=== PATIENT | male | born 1955 | race Caucasian/White ===

== ENCOUNTER 2024-01-30 11:18 | Emergency (ER) | payer SELFPAY ==
--- NOTE | ~2024-01-30 | CT_ITS ---
EXAMINATION: CT ABDOMEN AND PELVIS WITH CONTRAST CLINICAL INFORMATION: Right upper quadrant pain. Elevated bilirubin. COMPARISON: Ultrasound abdomen 01/30/2024 TECHNIQUE: Multidetector volumetric images were obtained from the superior aspect of the liver through the pubic symphysis following administration 85 mL of Omnipaque 350 intravenous contrast. Sagittal and coronal reformatted images were obtained on the technologist's workstation. Oral contrast: No This CT examination was performed using dose optimization techniques as appropriate, variously including the following: *Automated exposure control *Adjustment of mA and/or kV according to patient size (this includes techniques or standardized protocols for targeted exams where dose is matched to indication/reason for exam; i.e. extremities or head) *Use of iterative reconstruction technique DLP: 538 mGy-cm FINDINGS: LUNG BASES: Small patchy subpleural opacity in the right lung base, could reflect atelectasis or focal inflammatory process. No pericardial or pleural effusion. LIVER, GALLBLADDER, AND BILIARY TREE: The liver is normal in shape. No focal hepatic lesion or biliary ductal dilatation is present. The gallbladder is unremarkable with no evidence of radiopaque gallstones, gallbladder wall thickening, or obvious pericholecystic inflammatory changes. PANCREAS: There is elevation of the left hemidiaphragm. The tail of the pancreas is oriented superiorly extending to the left upper quadrant. No acute inflammatory changes are seen. No ductal dilatation seen. SPLEEN: The spleen is not clearly identified. There is a surgical clip in the left upper quadrant. There are at least 3 soft tissue foci/masses in the left upper quadrant, measuring 2.6 cm, 1.8 cm, and 3.2 cm respectively. These are adjacent to the tail of the pancreas. This of uncertain etiology, could be related to residual splenic tissue. ADRENAL GLANDS: Unremarkable. KIDNEYS AND URETERS: 4 cm left renal simple cyst. No follow-up is indicated. Small right renal hypodense lesion, too small to characterize, statistically likely to be a cyst. No renal or ureteral calculi seen. No evidence of hydroureteronephrosis. No perinephric stranding. BLADDER: Unremarkable. GASTROINTESTINAL TRACT: The stomach is nondistended. The fundus and body of the stomach is thick-walled.. This could be related to lack of distention. Other etiologies such as gastritis, infiltrative lesion cannot be excluded. No dilated small or large bowel loops. No acute inflammatory changes are identified of the small or large bowel. There are multiple appendicoliths present within the appendix. The appendix is nondistended, with no inflammatory changes identified. No free fluid. No free air. ABDOMINAL WALL: No significant hernia is appreciated. LYMPH NODES: No pathologically enlarged lymph nodes are seen in the abdomen or the pelvis. VASCULAR: Normal caliber aorta. Atherosclerotic vascular calcifications present. PELVIC VISCERA: Prostate calcifications present. Seminal vesicles appear unremarkable. OSSEOUS STRUCTURES: Multilevel degenerative changes in the spine. Rightward curvature of the lumbar spine. CT/CT abdomen pelvis w IV con IMPRESSION: 1. There is elevation the left hemidiaphragm. There is a surgical clip in the left upper quadrant. The spleen is not visualized. There is soft tissue foci/masses in the left upper quadrant, measuring 2.6 cm, 1.8 cm and 3.2 cm respectively. These are adjacent to the tail of the pancreas. These are off uncertain etiology. Potentially, this could represent residual splenic tissue. Other etiologies cannot be excluded. Correlate with patient's prior clinical history, prior imaging if available. Further evaluation with MRI can be considered, as clinically indicated. 2. There is a thickening of the fundus and body of the stomach. This could be related to lack of distention. Other etiologies such as gastritis or infiltrative lesion cannot be excluded. Clinically correlate. Further evaluation with upper GI series or endoscopy as clinically indicated. 3. Small patchy opacity right lung base could represent atelectasis or focal inflammatory process. 4. Multiple appendicoliths within appendix. No acute appendiceal inflammatory changes are identified at this stage. 5. Additional findings and details as above. Fleischner guidelines were followed.
--- NOTE | ~2024-01-30 | US_ITS ---
EXAMINATION: US ABDOMEN LIMITED CLINICAL INFORMATION: Epigastric and right upper quadrant pain. COMPARISON: None available. TECHNIQUE: Real-time imaging of the right upper quadrant abdominal viscera. FINDINGS: PANCREAS: The visualized portions of the pancreas are unremarkable but a large portion of the gland is obscured by bowel gas. LIVER: The liver is normal in size. The liver contour is normal. Parenchymal echogenicity is normal. No focal hepatic lesion. There is no intrahepatic biliary duct dilatation seen. GALLBLADDER: Normal. The gallbladder is physiologically distended without evidence of stones, sludge, polyps, wall thickening or pericholecystic fluid. COMMON BILE DUCT: Normal in caliber measuring 0.4 cm in diameter. RIGHT KIDNEY: No hydronephrosis. No renal calculi. A benign mid renal 1.2 cm Bosniak class I renal cyst is noted which requires no additional imaging or follow up. No solid renal masses are seen.. The kidney measures 11.4 cm in maximum dimension. FREE FLUID: None. US/US abdomen limited IMPRESSION: No significant abnormality is seen. A cause for the patient's epigastric and right upper quadrant pain has not been found.
[2024-01-30 11:21] VITALS: BP 146/89; PULSE 97; RESP 20; TEMP 36.8; O2SAT 97; BMI 26.8
--- NOTE | 2024-01-30 11:22 | ED_ITS ---
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 Patient reports that he had not been eating much the last approximate 10 days. Patient reports beginning to eat the last 2 days and states that he developed abdominal pain in the right upper quadrant after eating. He states no nausea or vomiting. He states no radiation pain to the back. He states no fevers or chills. He states no chest pain or dyspnea. He states no dysuria, flank pain or urinary frequency/urgency. He states no changes in bowel habits, constipation, diarrhea, melena or hematochezia. Related Data Allergies Allergy/AdvReac Type Severity Reaction Status Date / Time Penicillins Allergy Unknown Verified 01/30/24 11:26 Review of Systems Review of Systems ROS as per [facility] Social History Social History Advance Directives: No Advance Directives Information Provided: Yes Do you have a plan to hurt others: No Plan Physical Exam ED Vital Signs: Vital Signs - 24 hr 01/30/24 11:21 01/30/24 13:48 01/30/24 16:00 Temperature 98.2 F 98.0 F 98.8 F Pulse Rate 97 97 109 H Respiratory Rate 20 18 22 H Blood Pressure 146/89 H 169/81 H 154/82 H Pulse Oximetry 97 98 93 Oxygen Delivery Method Room Air Room Air Room Air 01/30/24 18:00 01/30/24 19:45 Temperature 98.9 F 98.9 F Pulse Rate 107 H 107 H Respiratory Rate 22 H 22 H Blood Pressure 154/82 H 154/82 H Pulse Oximetry 93 93 Oxygen Delivery Method Room Air Room Air BMI result Body Mass Index 26.8 Gen: NAD, AOx3 HEENT: NCAT, EOMI, normal conjunctiva CV: RRR Pulm: CTAB, no increased work of breathing GI: Soft, mild right upper quadrant tenderness to palpation, no rebound, guarding or rigidity, negative Carman's sign, negative Bower Fraga sign Neuro: Grossly non focal Course Course Course Narrative: This is a Rapid Medical Exam performed in triage by Marley Mayes PA-C. Full HPI, ROS and PE to be performed by primary ED provider. 68 year-old M w/ PMHx splenectomy & multiple other abdominal surgeries presenting to the ED c/o epigastric abdominal pain s/p eating Cabbage yesterday. denies N/V/D, fever PE: abdomen soft w/epigastric/RUQ ttp, no rebound or guarding Plan: Labs, UA, abdomen US ordered Medical Decision Making Medical Decision Making MDM Narrative: Differential diagnosis includes, but is not limited to biliary colic, acute cholecystitis, gastritis, pancreatitis. Patient is afebrile and hemodynamically stable on room air. Exam is benign and reassuring. I reviewed and interpreted EKG, which is unremarkable for any acute findings. Labs reviewed and interpreted by me are notable for mild hyponatremia of 129, elevated total bilirubin 2.3 indirect bilirubin 0.8. Otherwise labs are unremarkable and noncontributory as below. A given reported history of decreased oral intake with mild hyponatremia, suspect that mild hyponatremia of 129 is secondary to hypovolemia for which the patient is provided 1 L IV normal saline. I reviewed radiology impression of the right upper quadrant ultrasound which demonstrates no significant abnormality or cause of the patient's epigastric/right upper quadrant pain. I reviewed the radiology impression of CT abdomen and pelvis with IV contrast which demonstrates soft tissue foci/masses in the left upper quadrant, which could represent residual splenic tissue (patient is have history of splenectomy and this may certainly be the case), thickening of the fundus and body of the stomach (which may represent gastritis or infiltrative lesion - patient is currently being treated for Helicobacter pylori), small patchy opacity in the right lung base (I suspect that this is secondary to atelectasis given lack of respiratory symptoms) and multiple appendicoliths within the appendix without inflammatory changes. On re-examination, patient is well-appearing and in no acute distress. ?I discussed patient's aforementioned diagnostic results and need for Gastroenterology follow-up. There is no indication for further emergent evaluation in this otherwise well-appearing patient as above. ?Patient is provided written and verbal instructions, educational materials, recommendations for outpatient follow-up, gastroenterology referral, strict return precautions and teach back is performed. ?Patient states understanding and agreement with plan of care. ?Patient is discharged home in stable and improved condition. Admission/Observation Consideration of admission/observation: Escalation of care including admission/observation considered Lab Data MDM Lab Attestation statement: I reviewed the patient's lab results. Labs reviewed and interpreted by me are notable for mild hyponatremia of 129, elevated total bilirubin 2.3 indirect bilirubin 0.8. Otherwise labs are unremarkable and noncontributory as below. 01/30/24 11:45 01/30/24 11:45 Labs: Lab Results 01/30/24 Range/Units 11:45 WBC 8.9 (4.8-10.8) X10*3/uL RBC 5.03 (4.60-5.80) X10*6/uL Hgb 15.9 (14.0-18.0) g/dl Hct 42.7 (42.0-52.0) % MCV 84.9 (80.0-98.0) fL MCH 31.6 (27.0-33.0) pg MCHC 37.2 H (31.0-36.0) g/dl RDW 12.6 (11.0-16.0) % Plt Count 342 (160-400) X10*3/uL MPV 9.9 (9.4-12.4) fL Immature Gran % (Auto) 0.3 (0.0-0.4) % Neut % (Auto) 70.5 (45-73) % Lymph % (Auto) 15.2 L (20-40) % [place]verse % (Auto) 13.3 H (2-11) % Eos % (Auto) 0.5 (0-4) % Baso % (Auto) 0.2 (0-2) % Lymph # (Auto) 1.4 (1.2-4.9) X10*3/uL [place] # (Auto) 1.2 (0.1-1.2) X10*3/uL Eos # (Auto) 0.0 (0.0-0.4) X10*3/uL Baso # (Auto) 0.0 (0.0-0.2) X10*3/uL Abs Immat Gran (auto) 0.03 (0.00-0.03) X10*3/uL Absolute Neuts (auto) 6.3 (2.0-8.3) x10*3/uL Absolute Nucleated RBC 0.000 (0.0-0.012) X10*3/uL Nucleated RBC % (auto) 0.0 (0.0-0.2) /100WBC Sodium 129 L (135-145) mmol/L Potassium 3.8 (3.3-5.1) mmol/L Chloride 87 L (96-108) mmol/L Carbon Dioxide 29 (22-29) mmol/L Anion Gap 17 (12-20) BUN 6 L (9-16) mg/dL Creatinine 0.84 (0.5-1.4) mg/dL Estim Creat Clear Calc 83.6 Estimated GFR > 60 Random Glucose 121 H (60-115) mg/dL Calcium 9.8 (8.4-10.2) mg/dL Magnesium 2.1 (1.6-2.6) mg/dL Total Bilirubin 2.3 H (0.0-1.0) mg/dL Direct Bilirubin 0.8 H (0.0-0.5) mg/dL AST 34 (5-37) U/L ALT 27 (0-40) U/L Alkaline Phosphatase 72 (39-117) U/L Total Protein 7.6 (6.5-8.0) g/dL Albumin 4.4 (3.5-5.0) g/dL Lipase 50 (8-78) U/L Urine Color Yellow Urine Appearance Clear Urine pH 7.5 (5.0-9.0) Ur Specific [place] 1.010 (1.005-1.025) Urine Protein Trace (Neg-Trace) mg/dL Urine Glucose (UA) Negative (Negative) mg/dL Urine Ketones Trace (Negative) mg/dL Urine Blood Trace H (Negative) Urine Nitrite Negative (Negative) Ur Leukocyte Esterase Trace H (Negative) Urine RBC 6-10 H (0-2) /HPF Urine WBC 0-5 (0-5) /HPF Ur Squamous Epith Cells 3-5 (0-2) /HPF Urine Bacteria None Seen (None Seen) Hyaline Casts 0-2 (0-2) /LPF Radiology Impression Discussion of test interpretation with radiology: I have reviewed the radiologist's reading. Radiologist Impression: IMPRESSION: No significant abnormality is seen. A cause for the patient's epigastric and right upper quadrant pain has not been found. Dictated By: Ernie Rodgers MD Signed By: <Electronically signed by Ernie Rodgers MD in [place]> 01/30/24 1415 IMPRESSION: 1. There is elevation the left hemidiaphragm. There is a surgical clip in the left upper quadrant. The spleen is not visualized. There is soft tissue foci/masses in the left upper quadrant, measuring 2.6 cm, 1.8 cm and 3.2 cm respectively. These are adjacent to the tail of the pancreas. These are off uncertain etiology. Potentially, this could represent residual splenic tissue. Other etiologies cannot be excluded. Correlate with patient's prior clinical history, prior imaging if available. Further evaluation with MRI can be considered, as clinically indicated. 2. There is a thickening of the fundus and body of the stomach. This could be related to lack of distention. Other etiologies such as gastritis or infiltrative lesion cannot be excluded. Clinically correlate. Further evaluation with upper GI series or endoscopy as clinically indicated. 3. Small patchy opacity right lung base could represent atelectasis or focal inflammatory process. 4. Multiple appendicoliths within appendix. No acute appendiceal inflammatory changes are identified at this stage. 5. Additional findings and details as above. Fleischner guidelines were followed. Dictated By: Stephan Acosta MD Signed By: <Electronically signed by Stephan Acosta MD in [place]> 01/30/24 4616 Medications Administered Discontinued Medications Generic Name Dose Route Start Last Admin Trade Name Freq PRN Reason Stop Dose Admin Sodium Chloride 1,000 mls @ 999 mls/hr 01/30/24 14:30 01/30/24 15:52 Ns IV 01/30/24 15:30 Infused .Q1H1M SHAUNA Infusion Iohexol 100 ml 01/30/24 17:05 01/30/24 17:06 Iohexol 350 Mg/Ml 100 Ml Infus..Btl IV 01/30/24 17:06 85 ml ONCE ONE Administration Discharge Plan Discharge Clinical Impression: Abdominal pain Patient Disposition: Home, Self-Care Instructions: Abdominal Pain (ED) Additional Instructions: You were seen and evaluated in the emergency room. Your blood work was notable for elevated bilirubin. The ultrasound of your abdomen showed no significant abnormality. Your CT scan showed masses in the left upper quadrant of your abdomen which may be residual spleen tissue. Your CT scan also showed thickening of your stomach which may be related to inflammation or a lesion. You should follow-up with a content designer to discuss having an upper endoscopy. Your CT scan also showed stones in your appendix, but with no signs of inflammation or infection. You were given a referral to establish care with a content designer. Please call them tomorrow January 31, 2024 to schedule a follow-up appointment in the next 1-2 weeks. Please note your workup is not completed until you follow-up with a content designer. Please follow-up with your primary care doctor in the next 5-7 days. Please return to the emergency room if you develop any new or worsening symptoms including, but not limited to fever, chest pain, difficulty breathing, abdominal pain, nausea/vomiting or inability to eat/drink. Referrals: Jeff Jurado MD [Physician] - Interventions: ED Discharge Assessment Last Done: 01/30/24 19:45 Discharge Date/Time: 01/30/24 19:46 Print Language: Armenian
[2024-01-30 11:50] LABS: MANUAL DIFF FLAG NO
[2024-01-30 11:52] LABS: Basophils Percent Auto 0.2 % (0-2); Eosinophils Percent Auto 0.5 % (0-4); Hematocrit 42.7 % (42.0-52.0); Hemoglobin 15.9 g/dl (14.0-18.0); Imm Gran Abs Auto 0.03 X10*3/uL (0.00-0.03); Imm Gran Pct Auto 0.3 % (0.0-0.4); Lymphocytes Absolute Auto 1.4 X10*3/uL (1.2-4.9); Lymphocytes Percent Auto 15.2 % (20-40); Mean Corpuscular HGB Conc 37.2 g/dl (31.0-36.0); Mean Corpuscular Hemoglobin 31.6 pg (27.0-33.0); Mean Corpuscular Volume 84.9 fL (80.0-98.0); Mean Platelet Volume 9.9 fL (9.4-12.4); Monocytes Absolute Auto 1.2 X10*3/uL (0.1-1.2); Monocytes Percent Auto 13.3 % (2-11); Neutrophils Absolute Auto 6.3 x10*3/uL (2.0-8.3); Neutrophils Percent Auto 70.5 % (45-73); Platelet Count 342 X10*3/uL (160-400); Red Blood Count 5.03 X10*6/uL (4.60-5.80); Red Cell Distribution Width 12.6 % (11.0-16.0); White Blood Count 8.9 X10*3/uL (4.8-10.8)
[2024-01-30 12:02] LABS: Appearance Urine Clear; Color Urine Yellow; Glucose Urine UA Negative (Negative); Leukocyte Esterase Urine Trace (Negative); Nitrite Urine Negative (Negative); PH 7.5 (5.0-9.0); UMIC TRIGGER UACC YES; Urine Blood Trace (Negative); Urine Ketones Trace mg/dL (Negative); Urine Protein Trace mg/dL (Neg-Trace)
[2024-01-30 12:07] LABS: Bacteria Urine None Seen (None Seen); Hyaline Casts Urine 0-2 /LPF (0-2); WBC Urine 0-5 /HPF (0-5)
[2024-01-30 12:16] LABS: Alanine Aminotransferase 27 U/L (0-40); Albumin Level 4.4 g/dL (3.5-5.0); Alkaline Phosphatase 72 U/L (39-117); Anion Gap 17 (12-20); Aspartate Amino Transferase 34 U/L (5-37); Bilirubin Direct 0.8 mg/dL (0.0-0.5); Bilirubin Total 2.3 mg/dL (0.0-1.0); Blood Urea Nitrogen 6 mg/dL (9-16); Calcium 9.8 mg/dL (8.4-10.2); Carbon Dioxide 29 mmol/L (22-29); Chloride 87 mmol/L (96-108); Creatinine Clr Calc Pharmacy 83.6; Estimated Glomerular Filt Rate > 60; Glucose Random 121 mg/dL (60-115); Lipase 50 U/L (8-78); Magnesium 2.1 mg/dL (1.6-2.6); Potassium 3.8 mmol/L (3.3-5.1); Sodium 129 mmol/L (135-145); Total Protein 7.6 g/dL (6.5-8.0)
[2024-01-30 13:48] VITALS: BP 169/81; PULSE 97; RESP 18; TEMP 36.7; O2SAT 98
[2024-01-30] MEDS: 0.9 % Sodium Chloride 1,000 ML 999 ML IV (14:31)
[2024-01-30 16:00] VITALS: BP 154/82; PULSE 109; RESP 22; TEMP 37.1; O2SAT 93
[2024-01-30] MEDS: iohexoL 350 MG/ML 100 ML INFUS..BTL IV (17:06)
[2024-01-30 18:00] VITALS: BP 154/82; PULSE 107; RESP 22; TEMP 37.2; O2SAT 93
[2024-01-30 19:45] VITALS: BP 154/82; PULSE 107; RESP 22; TEMP 37.2; O2SAT 93
== END 2024-01-30 19:46 | disposition home or self-care (01) ==
PROVIDERS: Physician Assistant; Emergency Provider Emergency Medicine
DX: R10.11 Right upper quadrant pain (principal); R17 Unspecified jaundice
CPT/HCPCS: 36415; 74177; 76705; 80048; 80076; 81001; 81003; 83690; 83735; 85025; 96360; 99284; Q9967